=== PATIENT | female | born 1995 | race Caucasian/White ===

== ENCOUNTER 2016-12-15 20:10 | Emergency (ER) | payer OTHER ==
--- NOTE | 2016-12-15 21:59 | ED ---
Fever HPI - General Chief Complaint: Dizziness Stated Complaint: Fever/101 Time Seen by Provider: 12/15/16 21:47 Source: patient Mode of arrival: ambulatory Limitations: no limitations - History of Present Illness Initial Comments: Patient is a 21-year-old woman who presents today to be evaluated for fevers, chills, cough, and a syncopal episode. Patient states that she was at work tonight, and started feeling hot and cold. She went into the bathroom there and started feeling lightheaded then she passed out, and believes she struck her head against the railing in the bathroom stall. She states that she then got up and came here. The patient states that for the past day to 2 she has had a little bit of a cough without much sputum. She has no shortness of breath or chest pain. MD Complaint: fever, malaise -: hour(s) Temperature Source: subjective Context: sick contacts Associated Symptoms: chills, cough - Related Data Home Medications Medication Instructions Recorded Confirmed Albuterol Inhaler [Ventolin Hfa 1 - 2 puff INHALATION RT-Q6H PRN 12/15/16 Inhaler] EPINEPHrine [Epipen 2-Rob] 0.3 mg IM ONCE PRN 12/15/16 12/15/16 Ibuprofen [Motrin] 800 mg PO TID PRN 12/15/16 12/15/16 Lisdexamfetamine Dimesylate 70 mg PO QAM PRN 12/15/16 12/15/16 [Vyvanse] Allergies Allergy/AdvReac Type Severity Reaction Status Date / Time methylprednisolone Allergy Rash/Hives Verified 12/15/16 22:01 [From Medrol] mold Allergy Anaphylaxis Verified 12/15/16 22:01 Penicillins Allergy Unknown Verified 12/15/16 22:01 Childhood tramadol HCl [From Ultram] Allergy Rash/Hives Verified 12/15/16 22:01 codeine AdvReac Severe Vertigo Verified 12/15/16 22:01 [From Tylenol-Codeine #3] Review of Systems ROS Statement: Those systems with pertinent positive or pertinent negative responses have been documented in the HPI. ROS Other: All systems not noted in ROS Statement are negative. Constitutional: Reports: fever, chills Eyes: Denies: vision change ENT: Denies: ear pain, hearing loss, epistaxis, congestion Respiratory: Reports: cough. Denies: dyspnea, wheezes, hemoptysis Cardiovascular: Reports: syncope. Denies: chest pain, palpitations, dyspnea on exertion, edema Gastrointestinal: Denies: abdominal pain, nausea, vomiting, diarrhea, constipation Genitourinary: Denies: urgency, dysuria, hematuria Musculoskeletal: Denies: back pain Skin: Denies: rash Neurological: Reports: headache. Denies: weakness, numbness, paresthesias, confusion, abnormal gait, vertigo Past Medical History Past Medical History: No Reported History Additional Past Medical History / Comment(s): scoliosis History of Any Multi-Drug Resistant Organisms: None Reported Past Surgical History: No Surgical Hx Reported Past Psychological History: Anxiety, Panic Disorder Smoking Status: Current every day smoker Past Alcohol Use History: None Reported Past Drug Use History: None Reported General Exam Limitations: no limitations General appearance: alert, in no apparent distress Head exam: Present: atraumatic, normocephalic, normal inspection Eye exam: Present: normal appearance, PERRL, EOMI. Absent: scleral icterus, conjunctival injection, nystagmus ENT exam: Present: normal oropharynx, mucous membranes moist, TM's normal bilaterally, normal external ear exam Neck exam: Present: normal inspection, full ROM, lymphadenopathy. Absent: tenderness, meningismus Respiratory exam: Present: normal lung sounds bilaterally. Absent: respiratory distress, wheezes, rales, rhonchi, stridor Cardiovascular Exam: Present: regular rate, normal rhythm, normal heart sounds. Absent: systolic murmur, diastolic murmur, rubs, gallop GI/Abdominal exam: Present: soft. Absent: distended, tenderness, guarding, rebound, mass Extremities exam: Present: normal inspection, normal capillary refill. Absent: pedal edema, calf tenderness Back exam: Absent: CVA tenderness (R), CVA tenderness (L) Neurological exam: Present: alert, oriented X3, CN II-XII intact. Absent: motor sensory deficit Skin exam: Present: warm, dry, intact, normal color. Absent: rash Course Vital Signs 12/15/16 20:49 Temperature 98.8 F Pulse Rate 101 H Respiratory 20 Rate Blood Pressure 125/84 O2 Sat by Pulse 98 Oximetry Medical Decision Making - Lab Data Lab Results 03/08/17 03/08/17 03/08/17 Range/Units 22:05 22:05 22:05 Urine Color Yellow Urine Appearance Clear (Clear) Urine pH 5.5 (5.0-8.0) Ur Specific [place] 1.012 (1.001-1.035) Urine Protein Negative (Negative) Urine Glucose (UA) Negative (Negative) Urine Ketones Negative (Negative) Urine Blood Small H (Negative) Urine Nitrate Negative (Negative) Urine Bilirubin Negative (Negative) Urine Urobilinogen <2.0 (<2.0) mg/dL Ur Leukocyte Esterase Negative (Negative) Urine RBC 3 (0-5) /hpf Urine WBC 1 (0-5) /hpf Ur Squamous Epith Cells <1 (0-4) /hpf Urine Bacteria Rare H (None) /hpf Urine HCG, Qual Not Detected (Not Detectd) Influenza Type A RNA Not Detected (Not Detectd) Influenza Type B (PCR) Not Detected (Not Detectd) Disposition Clinical Impression: Viral syndrome, Head injury Disposition: HOME SELF-CARE Condition: Good Instructions: Viral Syndrome (ED), Head Injury (ED) Referrals: Nestor Ruvalcaba MD [Primary Care Provider] - 1-2 days
[2016-12-15 22:27] LABS: Appearance,Urine Clear (Clear); Bacteria,Urine Rare /hpf; Bilirubin,Urine Negative (Negative); Glucose,Urine (UA) Negative (Negative); Ketones,Urine Negative (Negative); Leukocyte Esterase,Urine Negative (Negative); Nitrite,Urine Negative (Negative); PH, Urine 5.5 (5.0-8.0); Particle Count 702; Protein,Urine Negative (Negative); RBC,Urine 3 /hpf (0-5); Specific Gravity,Urine 1.012 (1.001-1.035); Squamous Epithelial Cell,Urine <1 /hpf (0-4); UA Billing (MACRO vs. MICRO) MICRO; Urobilinogen,Urine <2.0 mg/dL (<2.0); WBC,Urine 1 /hpf (0-5)
[2016-12-15 23:40] VITALS: BP 111/71; PULSE 80; RESP 16; TEMP 99.2
== END 2016-12-15 23:35 | disposition home or self-care (01) ==
LOC: EC 20:10
DX: B34.9 Viral infection, unspecified (principal); S09.90XA Unspecified injury of head, initial encounter; R55 Syncope and collapse; F17.200 Nicotine dependence, unspecified, uncomplicated; Z88.5 Allergy status to narcotic agent; Z88.0 Allergy status to penicillin; Z88.8 Allergy status to other drugs, medicaments and biological substances; Z91.048 Other nonmedicinal substance allergy status; W18.30XA Fall on same level, unspecified, initial encounter; Y99.0 Civilian activity done for income or pay
CPT/HCPCS: 81001; 81025; 87502; 99284

== ENCOUNTER 2018-11-19 21:46 | Emergency (ER) | payer BC, OTHER ==
[2018-11-19 21:56] VITALS: TEMP 98.2
[2018-11-19] MEDS ORDERED: FAMOTIDINE 20 MG/2 ML VIAL IV STA (21:57)
[2018-11-19] MEDS ORDERED: SODIUM CHLORIDE 0.9% 1,000 ML IV ONE (21:57)
[2018-11-19] MEDS ORDERED: diphenhydrAMINE 50 MG/ML 1 ML VIAL IVP STA (21:57)
[2018-11-19] MEDS ORDERED: predniSONE 50 MG TAB PO STA (21:59)
--- NOTE | 2018-11-19 22:31 | ED ---
Allergic Reaction HPI - General Chief complaint: Allergic Reaction Stated complaint: Allergic reaction Time Seen by Provider: 11/19/18 21:53 Source: patient Mode of arrival: ambulatory Limitations: no limitations - History of Present Illness Initial Comments: 23-year-old female patient presents to the emergency department today for evaluation of rash and throat pain after eating mushrooms about 2 hours ago. Patient is a known ALLERGY to mushrooms. Patient states symptoms started about an hour ago. Denies taking any medication for her symptoms. States she does have an EpiPen but doesn't use it unless her throat is closed. She denies any lip or tongue swelling.denies any wheezing or shortness of breath. Denies any abdominal pain, nausea, or vomiting with this. States that her symptoms are consistent with her previous ALLERGIC reactions. Patient denies any recent rash , fever, chills, chest pain, abdominal pain, nausea, vomiting, diarrhea, constipation, back pain, numbness, tingling, dizziness, weakness, hematuria, dysuria, urinary urgency, urinary frequency, headache, visual changes, or any other complaints. Denies chance of . - Related Data Home Medications Medication Instructions Recorded Confirmed Albuterol Inhaler [Ventolin Hfa 1 - 2 puff INHALATION RT-Q6H PRN 12/15/16 Inhaler] EPINEPHrine [Epipen 2-Rob] 0.3 mg IM ONCE PRN 12/15/16 09/17/17 Ibuprofen [Motrin] 800 mg PO TID PRN 12/15/16 09/17/17 Lisdexamfetamine Dimesylate 70 mg PO QAM PRN 12/15/16 09/17/17 [Vyvanse] Dicyclomine HCl 10 mg PO TID 09/17/17 09/17/17 Omeprazole 40 mg PO DAILY 09/17/17 09/17/17 Previous Rx's Medication Instructions Recorded Hyoscyamine Sulfate [Levsin] 0.125 mg PO Q4H PRN #20 tab 09/18/17 Famotidine [Pepcid] 20 mg PO DAILY #3 tablet 11/19/18 predniSONE 50 mg PO DAILY #3 tab 11/19/18 Allergies Allergy/AdvReac Type Severity Reaction Status Date / Time methylprednisolone Allergy Rash/Hives Verified 09/17/17 22:02 [From Medrol] mold Allergy Anaphylaxis Verified 09/17/17 22:02 Penicillins Allergy Unknown Verified 09/17/17 22:02 Childhood tramadol HCl [From Ultram] Allergy Rash/Hives Verified 09/17/17 22:02 codeine AdvReac Severe Vertigo Verified 09/17/17 22:02 [From Tylenol-Codeine #3] Review of Systems ROS Statement: Those systems with pertinent positive or pertinent negative responses have been documented in the HPI. ROS Other: All systems not noted in ROS Statement are negative. Past Medical History Past Medical History: No Reported History Additional Past Medical History / Comment(s): scoliosis History of Any Multi-Drug Resistant Organisms: None Reported Past Surgical History: No Surgical Hx Reported Past Psychological History: Anxiety, Panic Disorder Smoking Status: Current every day smoker Past Alcohol Use History: None Reported Past Drug Use History: None Reported General Exam Limitations: no limitations General appearance: alert, in no apparent distress, other Course Vital Signs 11/19/18 11/19/18 21:53 23:20 Temperature 98.2 F Pulse Rate 77 63 Respiratory 20 16 Rate Blood Pressure 118/85 123/60 O2 Sat by Pulse 99 96 Oximetry Medical Decision Making - Medical Decision Making 23-year-old female patient who is an ALLERGY to mushrooms presents to the emergency department today for evaluation of throat pain and itchy rash after ingesting mushrooms with a meal. She denied any lip or tongue swelling. Denies any shortness of breath or wheezing. She was given IV Pepcid, Benadryl, and oral prednisone. Patient did report improvement of symptoms. Upon reevaluation the rash has resolved. Lungs are clear. Vital signs stable. She is requesting discharge home. She'll be given a prescription for 3 day course of prednisone and Pepcid. She is instructed to keep EpiPen on hand. She is instructed take Benadryl every 6 hours for symptom relief. Return parameters were discussed in detail. She verbalizes understanding and agrees with this plan. Disposition Clinical Impression: Allergic reaction Disposition: HOME SELF-CARE Condition: Good Instructions (If sedation given, give patient instructions): General Allergic Reaction (ED) Additional Instructions: Take medications as directed. Use Epi-Pen if needed. Follow up with your primary care physician for recheck in 1-2 days. Return immediately for any new, worsening, or concerning symptoms Prescriptions: Famotidine [Pepcid] 20 mg PO DAILY #3 tablet predniSONE 50 mg PO DAILY #3 tab Is patient prescribed a controlled substance at d/c from ED?: No Referrals: Nestor Ruvalcaba MD [Primary Care Provider] - 1-2 days Time of Disposition: 23:07
[2018-11-19 23:22] VITALS: BP 123/60; PULSE 63; RESP 16
== END 2018-11-19 23:22 | disposition home or self-care (01) ==
LOC: EC 21:46
DX: T78.40XA Allergy, unspecified, initial encounter (principal); F41.0 Panic disorder [episodic paroxysmal anxiety]; F17.200 Nicotine dependence, unspecified, uncomplicated; Z79.899 Other long term (current) drug therapy; Z88.0 Allergy status to penicillin; Z88.5 Allergy status to narcotic agent; Z91.048 Other nonmedicinal substance allergy status; Z88.8 Allergy status to other drugs, medicaments and biological substances; Z91.018 Allergy to other foods
CPT/HCPCS: 99283; 96374; 96375; 96361; J1200; J7512

== ENCOUNTER 2018-12-05 15:52 | Emergency (ER) | payer OTHER, BC ==
[2018-12-05 15:58] VITALS: BP 131/89; PULSE 76; RESP 18; TEMP 97.8
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
== END 2018-12-05 16:55 | disposition home or self-care (01) ==
LOC: EC 15:52
DX: T81.33XA Disruption of traumatic injury wound repair, initial encounter (principal); R58 Hemorrhage, not elsewhere classified; F17.200 Nicotine dependence, unspecified, uncomplicated; Z79.899 Other long term (current) drug therapy; Z88.0 Allergy status to penicillin; Z88.5 Allergy status to narcotic agent; Z88.8 Allergy status to other drugs, medicaments and biological substances; Z91.048 Other nonmedicinal substance allergy status
CPT/HCPCS: 99282

== ENCOUNTER 2019-01-08 20:23 | Emergency (ER) | payer OTHER, BC ==
[2019-01-08 20:35] VITALS: RESP 18
[2019-01-08] MEDS ORDERED: SODIUM CHLORIDE 0.9% 1,000 ML IV STA (22:09)
[2019-01-08] MEDS ORDERED: diphenhydrAMINE 50 MG/ML 1 ML VIAL IVP STA (22:10)
[2019-01-08] MEDS ORDERED: METOCLOPRAMIDE 5 MG/ML 2 ML VIAL IVP STA (22:10)
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
--- NOTE | 2019-01-08 23:11 | CT ---
EXAM: CT Head Without Intravenous Contrast CLINICAL HISTORY: Pain TECHNIQUE: Axial computed tomography images of the head/brain without intravenous contrast. CTDI is 45.2 mGy and DLP is 1019 mGy-cm. This CT exam was performed using one or more of the following dose reduction techniques: automated exposure control, adjustment of the mA and/or kV according to patient size, and/or use of iterative reconstruction technique. COMPARISON: No relevant prior studies available. FINDINGS: Brain: Unremarkable. No hemorrhage. No significant white matter disease. No edema. Ventricles: Unremarkable. No ventriculomegaly. Bones/joints: Unremarkable. No acute fracture. Soft tissues: Unremarkable. Sinuses: Unremarkable as visualized. No acute sinusitis. Mastoid air cells: Unremarkable as visualized. No mastoid effusion. IMPRESSION: Unremarkable Ct Brain EXAM: CT Cervical Spine Without Intravenous Contrast CLINICAL HISTORY: Pain TECHNIQUE: Axial computed tomography images of the cervical spine without intravenous contrast. CTDI is 11.1 mGy and DLP is 355 mGy-cm. This CT exam was performed using one or more of the following dose reduction techniques: automated exposure control, adjustment of the mA and/or kV according to patient size, and/or use of iterative reconstruction technique. Coronal and sagittal reformatted images were created and reviewed. COMPARISON: No relevant prior studies available. FINDINGS: Vertebrae: Unremarkable. No acute fracture. Discs/spinal canal/neural foramina: No acute findings. No spinal canal stenosis. Soft tissues: Unremarkable. IMPRESSION: No Fracture or Malalignment of the cervical spine
[2019-01-08] MEDS ORDERED: KETOROLAC 30 MG/ML 1 ML VIAL IVP STA (23:26)
[2019-01-09 00:02] VITALS: BP 111/71; PULSE 56; TEMP 97.6
== END 2019-01-09 00:01 | disposition home or self-care (01) ==
LOC: EC 20:23
DX: R51 Headache (principal); H53.8 Other visual disturbances; F41.0 Panic disorder [episodic paroxysmal anxiety]; F17.200 Nicotine dependence, unspecified, uncomplicated; Z79.899 Other long term (current) drug therapy; Z88.0 Allergy status to penicillin; Z88.5 Allergy status to narcotic agent; Z88.8 Allergy status to other drugs, medicaments and biological substances; Z91.048 Other nonmedicinal substance allergy status; Z53.29 Procedure and treatment not carried out because of patient's decision for other reasons
CPT/HCPCS: 72125; 70450; 99284; 96374; 96375; J1200; J2765

== ENCOUNTER → 2019-02-26 | Outpatient (CLI) | payer BC, OTHER | END | disposition home or self-care (01) | LOC: LABWHC1 17:09 | PROVIDERS: ATTEND Nurse Practitioner Family | DX: N91.2 Amenorrhea, unspecified (principal) | CPT/HCPCS: 36415; 84702 ==

== ENCOUNTER → 2019-03-07 | Outpatient (CLI) | payer OTHER ==
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
== END | disposition home or self-care (01) ==
LOC: RADXRMAIN 13:00
PROVIDERS: ATTEND Emergency Medicine
DX: M79.644 Pain in right finger(s) (principal); M25.531 Pain in right wrist

== ENCOUNTER → 2019-03-13 | Outpatient (CLI) | payer OTHER ==
--- NOTE | 2019-03-13 11:08 | XR ---
Right wrist HISTORY: Pain 4 views of the right wrist Bone mineralization, joint spaces and alignment are maintained. No fracture or dislocation. IMPRESSION: Normal right wrist. Wrist MRI may be of benefit.
== END | disposition home or self-care (01) ==
LOC: RADXRMAIN 10:35
PROVIDERS: ATTEND Emergency Medicine
DX: S63.501D Unspecified sprain of right wrist, subsequent encounter (principal)

== ENCOUNTER 2019-03-17 09:42 | Emergency (ER) | payer BC, OTHER ==
[2019-03-17 09:46] VITALS: RESP 16; TEMP 97.6
[2019-03-17] MEDS ORDERED: SODIUM CHLORIDE 0.9% 1,000 ML IV STA ×2 (10:09)
[2019-03-17] MEDS ORDERED: KETOROLAC 30 MG/ML 1 ML VIAL IVP STA (10:09)
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
--- NOTE | 2019-03-17 11:01 | XR ---
EXAMINATION TYPE: XR KUB , 2 VIEWS DATE OF EXAM ORDERED: 03/17/2019 HISTORY: abdominal pain. COMPARISON: None. FINDINGS: The lung bases are clear. Within the abdomen, the abdominal gas pattern is normal. There is no evidence of obstruction or free air. No unusual calcifications are seen. IMPRESSION: NO ACUTE INTRA-ABDOMINAL ABNORMALITY.
[2019-03-17 11:30] LABS: Appearance,Urine Cloudy (Clear); Bacteria,Urine Moderate /hpf; Bilirubin,Urine Negative (Negative); Blood,Urine Moderate (Negative); Color,Urine Yellow; Glucose,Urine (UA) Negative (Negative); Ketones,Urine Negative (Negative); Leukocyte Esterase,Urine Large (Negative); Mucus,Urine Occasional /hpf; Nitrite,Urine Positive (Negative); Partial Thromboplastin Time 27.8 sec (22.0-30.0); Protein,Urine 2+ (Negative); Prothrombin Time 10.5 sec (9.0-12.0); RBC,Urine >182 /hpf (0-5); Squamous Epithelial Cell,Urine 41 /hpf (0-4); Urobilinogen,Urine <2.0 mg/dL (<2.0); WBC,Urine >182 /hpf (0-5)
[2019-03-17 11:33] LABS: ALT 13 U/L (9-52); AST 18 U/L (14-36); Albumin 4.8 g/dL (3.5-5.0); Alkaline Phosphatase 58 U/L (38-126); Amylase 40 U/L (30-110); Anion Gap 11 mmol/L; Blood Urea Nitrogen 12 mg/dL (7-17); Calcium 9.5 mg/dL (8.4-10.2); Carbon Dioxide 20 mmol/L (22-30); Chloride 110 mmol/L (98-107); Glucose 75 mg/dL (74-99); Lipase 27 U/L (23-300); Potassium 4.8 mmol/L (3.5-5.1); Sodium 141 mmol/L (137-145); Total Bilirubin 0.8 mg/dL (0.2-1.3); Total Protein 7.6 g/dL (6.3-8.2)
[2019-03-17] MEDS ORDERED: cefTRIAXone IN SWFI 1,000 MG/10 ML SYRINGE IVP STA (11:36)
[2019-03-17 11:39] LABS: Basophils % (A) 0 %; Eosinophils # (A) 0.1 k/uL (0-0.7); Eosinophils % (A) 1 %; HCT 43.4 % (34.0-46.0); Lymphocytes # (A) 1.4 k/uL (1.0-4.8); Lymphocytes % (A) 13 %; MCH 27.7 pg (25.0-35.0); MCHC 32.3 g/dL (31.0-37.0); MCV 85.9 fL (80.0-100.0); Mean Platelet Volume 8.5; Monocytes # (A) 0.6 k/uL (0-1.0); Monocytes % (A) 5 %; Neutrophils # (A) 8.6 k/uL (1.3-7.7); Neutrophils % (A) 80 %; Platelet Count 195 k/uL (150-450); RBC 5.06 m/uL (3.80-5.40); RDW 13.6 % (11.5-15.5); WBC 10.8 k/uL (3.8-10.6)
[2019-03-17 12:01] VITALS: BP 97/63; PULSE 73
[2019-03-17] MEDS ORDERED: AZITHROMYCIN 500 MG TAB PO STA (12:14)
[2019-03-18 15:48] LABS: C. trachomatis,PCR Negative (Neg,Equiv); Chlamydia trachomatis Source Urine; N. gonorrhoeae,PCR Negative (Neg,Equiv); Neisseria Source Urine
== END 2019-03-17 12:39 | disposition home or self-care (01) ==
LOC: EC 09:42
DX: N39.0 Urinary tract infection, site not specified (principal); R11.0 Nausea; F17.200 Nicotine dependence, unspecified, uncomplicated; Z88.0 Allergy status to penicillin; Z88.5 Allergy status to narcotic agent; Z88.8 Allergy status to other drugs, medicaments and biological substances; Z91.048 Other nonmedicinal substance allergy status; Z79.3 Long term (current) use of hormonal contraceptives; Z79.899 Other long term (current) drug therapy
CPT/HCPCS: 36415; 80053; 82150; 83690; 85025; 85610; 85730; 81001; 81025; 87491; 87591; 87086; 74018; 99284; 96374; 96375; 96361 ×2; J0696; J1885; 87077; 87186

== ENCOUNTER → 2019-04-30 | Outpatient (CLI) | payer BC, OTHER | END | disposition home or self-care (01) | LOC: LABWHC1 14:16 | PROVIDERS: ATTEND Obstetrics & Gynecology | DX: N91.2 Amenorrhea, unspecified (principal) | CPT/HCPCS: 36415; 84702 ==

== ENCOUNTER → 2020-05-19 | Outpatient (CLI) | payer OTHER ==
[2020-05-19 15:36] LABS: HCT 39.7 % (34.0-46.0); HGB 12.7 gm/dL (11.4-16.0); MCH 28.7 pg (25.0-35.0); MCHC 32.1 g/dL (31.0-37.0); MCV 89.7 fL (80.0-100.0); Platelet Count 239 k/uL (150-450); RBC 4.43 m/uL (3.80-5.40); RDW 13.4 % (11.5-15.5)
[2020-05-20 01:22] LABS: Non-African American GFR(CKD) 135.5 (60.0-200.0)
[2020-05-20 02:18] LABS: Hepatitis B Surface Antigen Non-Reactive (Non-Reactive)
[2020-05-20 06:39] LABS: HIV 2 AB Non-Reactive (Non-Reactive); HIV AB P24 Non-Reactive (Non-Reactive); HIV P24 AG Non-Reactive (Non-Reactive)
== END | disposition home or self-care (01) ==
LOC: LABWHC1 13:39
PROVIDERS: ATTEND Obstetrics & Gynecology
DX: Z34.02 Encounter for supervision of normal first pregnancy, second trimester (principal)
CPT/HCPCS: 36415; 82565; 82947; 85027; 86762; 86780; 86850; 86900; 86901; 87340; 87390

== ENCOUNTER 2020-07-14 10:33 | Emergency (ER) | payer OTHER ==
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
--- NOTE | 2020-07-14 11:45 | US ---
EXAMINATION TYPE: US OB >= 14 wk fetus DATE OF EXAM: 07/14/2020 COMPARISON: None CLINICAL HISTORY: pain Difficult exam due to position TECHNIQUE: Transabdominal (TA) GESTATIONAL AGE / DATING Physician Established: (17weeks/0 days) EDC: 12/22/2020 Dates by LMP: (17weeks/0 days) EDC: 12/22/2020 Dates by Current Scan: (17weeks/0 days) EDC: 12/22/2020 SURVEY IUP: Single PLACENTA: Posterior PREVIA: No Previa AMBER: 15.7 cm CERVICAL LENGTH (transabdominal: norm > 3.0cm): 3.2 cm BIOMETRY PRESENTATION: Vertex LIE: Longitudinal BPD: 3.8 cm 17 weeks / 4 days HC: 13.6 cm 17 weeks / 1 days AC: 11.3 cm 17 weeks / 1 days FL: 2.1 cm 16 weeks / 1 days ESTIMATED WEIGHT IN GRAMS: 165 grams ESTIMATED WEIGHT IN LBS/OZ: 0 lbs. 6 oz. WEIGHT PERCENTAGE BASED ON ESTABLISHED DATES: 25% HC/AC: 1.2 Normal FL/AC: 18% Normal HEART RATE: 149 bpm RHYTHM: Normal Viable IUP, measurements consistent with dates IMPRESSION: Viable intrauterine with a heart rate 149 bpm.
[2020-07-14] MEDS ORDERED: ACETAMINOPHEN TAB 500 MG TAB PO STA (12:08)
[2020-07-14 12:18] LABS: Appearance,Urine Cloudy (Clear); Bacteria,Urine Rare /hpf; Bilirubin,Urine Negative (Negative); Blood,Urine Small (Negative); Color,Urine Yellow; Glucose,Urine (UA) Negative (Negative); Ketones,Urine Negative (Negative); Leukocyte Esterase,Urine Moderate (Negative); Mucus,Urine Rare /hpf; Nitrite,Urine Negative (Negative); PH, Urine 6.5 (5.0-8.0); Protein,Urine Negative (Negative); RBC,Urine 1 /hpf (0-5); Specific Gravity,Urine 1.014 (1.001-1.035); Squamous Epithelial Cell,Urine 18 /hpf (0-4); Urobilinogen,Urine <2.0 mg/dL (<2.0); WBC,Urine 4 /hpf (0-5)
[2020-07-14 12:51] VITALS: BP 104/59; PULSE 73; RESP 18; TEMP 97.9
== END 2020-07-14 12:51 | disposition home or self-care (01) ==
LOC: EC 10:33
DX: O26.892 Other specified pregnancy related conditions, second trimester (principal); Z88.0 Allergy status to penicillin; Z88.1 Allergy status to other antibiotic agents; Z88.5 Allergy status to narcotic agent; Z88.8 Allergy status to other drugs, medicaments and biological substances; Z91.018 Allergy to other foods; Z91.048 Other nonmedicinal substance allergy status; Z87.891 Personal history of nicotine dependence; Z3A.17 17 weeks gestation of pregnancy
CPT/HCPCS: 76805; 81001; 99284

== ENCOUNTER 2020-08-14 14:54 | Outpatient (CLI) | payer OTHER ==
[2020-08-14 15:41] VITALS: BP 111/66; PULSE 90; RESP 16; TEMP 97
--- NOTE | 2020-08-26 08:19 | P.MSEPDOC ---
Presenting Problems - Arrival Data Date of Arrival on Unit: 08/14/20 Time of Arrival on Unit: 14:54 Mode of Transport: Ambulatory - Complaint OB-Reason for Admission/Chief Complaint: Vaginal Bleeding Comment: spotting when wiping after intercourse since 0200 this am Medical History - Information : 1 Para: 0 Term: 0 : 0 Abortions: Spontaneous or Elective: 0 Number of Living Children: 0 - Gestational Age Gestational Age by LASHAE (wks/days): 21 Weeks and 3 Days Review of Systems - Review of Systems Constitutional: No problems Breast: No problems ENT: No problems Cardiovascular: No problems Respiratory: No problems Gastrointestinal: No problems Genitourinary: No problems Musculoskeletal: No problems Neurological: No problems Skin: No problems Vital Signs - Temperature Temperature: 97 F Temperature Source: Temporal Artery Scan - Pulse Right Sitting Pulse Rate: 90 Pulse Assessment Method: Automatic Cuff - Respirations Respiratory Rate: 16 Oxygen Delivery Method: Room Air - Blood Pressure Right Arm Blood Pressure: 111/66 Blood Pressure Mean: 81 Blood Pressure Source: Automatic Cuff Medical Screen Scoring (Pre) - Cervical Exam Dilation: 0 cm = 0 Membranes: Intact - Uterine Contractions Frequency: N/A Duration: N/A Intensity: N/A - Maternal Vital Signs Maternal Temperature: N/A Signs of Preeclampsia: N/A Maternal Respirations: N/A - Maternal Trauma Maternal Trauma: N/A - Total Score - Baby A Total Score - Baby A: 0 - Total Score - Baby B Total Score - Baby B: 0 - Total Score - Baby C Total Score - Baby C: 0 - Level of Risk - Baby A Level of Risk - Baby A: Low (0-5) - Level of Risk - Baby B Level of Risk - Baby B: Low (0-5) - Level of Risk - Baby C Level of Risk - Baby C: Low (0-5) Physician Notification (Pre) - Physician Notified Physician Notified Date: 08/14/20 Physician Notified Time: 15:24 New Order Received: Yes (spec and vag exam, if no bleeding and closed, d/c home) Disposition - Disposition OB Disposition: Discharge to home, Written follow up instructions reviewed Discharge Date: 08/14/20 Discharge Time: 15:35 I agree with the RN Medical Screening Exam: Yes Risk & Benefit of care provided described in d/c instruction: Yes Diagnosis: SPOTTING COMPLICATING , THIRD TRIMESTER
== END 2020-08-14 15:35 | disposition home or self-care (01) ==
LOC: FBPOP 14:54
PROVIDERS: ATTEND Obstetrics & Gynecology
DX: O26.853 Spotting complicating pregnancy, third trimester (principal); Z3A.21 21 weeks gestation of pregnancy
CPT/HCPCS: 99213

== ENCOUNTER 2020-12-17 06:09 | Inpatient (IN) | payer OTHER ==
[2020-12-17] MEDS ORDERED: TERBUTALINE 1 MG/ML VIAL SQ PRN (06:35)
[2020-12-17] MEDS ORDERED: LIDOCAINE 0.5% (PF) 5 MG/ML (50 ML SDV) SQ PRN (06:35)
[2020-12-17] MEDS ORDERED: OXYTOCIN 10 UNIT/ML 1 ML VIAL IM PRN (06:35)
[2020-12-17] MEDS ORDERED: METHYLERGONOVINE 0.2 MG/ML 1 ML AMP IM PRN (06:35)
[2020-12-17] MEDS ORDERED: CARBOPROST TROMETHAMINE 250 MCG/ML 1 ML AMP IM PRN (06:35)
[2020-12-17] MEDS ORDERED: OXYTOCIN 30 UNITS/500 ML NS 30 UNIT in SALINE 1 500ML.BAG IV SCH ×2 (06:45→17:15)
[2020-12-17] MEDS: LACTATED RINGERS 1,000 ML IV SCH ×3 (06:48→17:57)
[2020-12-17 06:50] LABS: Basophils % (A) 0 %; Eosinophils # (A) 0.1 k/uL (0-0.7); Eosinophils % (A) 0 %; HCT 36.1 % (34.0-46.0); Lymphocytes # (A) 3.1 k/uL (1.0-4.8); Lymphocytes % (A) 22 %; MCH 29.8 pg (25.0-35.0); MCHC 33.1 g/dL (31.0-37.0); MCV 90.1 fL (80.0-100.0); Mean Platelet Volume 8.7; Monocytes # (A) 0.7 k/uL (0-1.0); Monocytes % (A) 5 %; Neutrophils # (A) 9.9 k/uL (1.3-7.7); Neutrophils % (A) 71 %; Platelet Count 221 k/uL (150-450); RBC 4.01 m/uL (3.80-5.40); RDW 12.9 % (11.5-15.5); WBC 13.9 k/uL (3.8-10.6)
[2020-12-17] MEDS ORDERED: BUTORPHANOL 1 MG/ML 1 ML VIAL IV PRN (09:36)
[2020-12-17] MEDS ORDERED: SODIUM CHLORIDE 0.9% 100 ML BAG ONE (10:12)
[2020-12-17] MEDS ORDERED: fentaNYL (PF) 50 MCG/ML 5 ML AMP ONE (10:12)
[2020-12-17] MEDS ORDERED: BUPIVACAINE (PF) 0.25% 30 ML VIAL ONE (10:12)
[2020-12-17] MEDS ORDERED: ROPIVACAINE 100 MG, fentaNYL (PF) 200 MCG in SODIUM CHLORIDE 0.9% 76 ML EPIDURAL ONE (10:45)
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
[2020-12-17] MEDS ORDERED: LANOLIN CREAM 5 GM TUBE TOPICAL PRN (17:14)
[2020-12-17] MEDS ORDERED: diphenhydrAMINE 50 MG CAP PO PRN (17:14)
[2020-12-17] MEDS ORDERED: diphenhydrAMINE 25 MG CAP PO PRN (17:14)
[2020-12-17] MEDS ORDERED: ZOLPIDEM 5 MG TAB PO PRN (17:14)
[2020-12-17] MEDS ORDERED: HYDROCORTISONE 2.5% RECTAL CREAM 30 GM TUBE RECTAL PRN (17:14)
[2020-12-17] MEDS ORDERED: diphenhydrAMINE 50 MG/ML 1 ML VIAL IVP PRN ×2 (17:14)
[2020-12-17] MEDS ORDERED: BENZOCAINE/MENTHOL SPRAY 1 GM/SPRAY AEROSOL TOPICAL PRN (17:14)
[2020-12-17] MEDS ORDERED: SIMETHICONE 80 MG CHEWABLE PO PRN (17:14)
--- NOTE | 2020-12-17 17:14 | P.PROBDLV ---
Vaginal Delivery Note - . Vaginal Delivery Note: 25 year old presents at 39 weeks and 1 day for induction of labor. Her cervix is 1 cm dilated, 70% effaced, -2 station. She is tyler irregularly. heart tones 135 with moderate variability and reactive. Pitocin was started. Amniotomy performed at 7:54 AM and clear fluid noted. When she was 2 cm she got an epidural and was comfortable. Her cervix was completely dilated and +2 station at 1644. She pushed, delivered a viable female over intact perineum under epidural anesthesia at 1657. Head delivered OA, anterior shoulder delivered gentle downward guidance followed by posterior shoulder and rest of body. Nose and mouth bulb suctioned, cord clamped and cut, infant placed on mother's abdomen. Apgars 9, 9, weight 6 lbs. 12 oz. Placenta delivered spontaneously, intact with three-vessel cord at 1700. Vagina, cervix, and perineum were inspected. Second-degree midline laceration was repaired with 3-0 Vicryl. Estimated blood loss 200 mL. Mother and baby in stable condition.
[2020-12-17] MEDS ORDERED: ACETAMINOPHEN TAB 500 MG TAB PO PRN (17:15)
[2020-12-17] MEDS: IBUPROFEN 600 MG TAB PO SCH (18:57)
[2020-12-17] MEDS: SENNOSIDES-DOCUSATE SODIUM 1 EACH TAB PO SCH (20:12)
[2020-12-17] MEDS: ACETAMINOPHEN TAB 325 MG TAB PO PRN (23:58)
[2020-12-18] MEDS: IBUPROFEN 600 MG TAB PO SCH ×5 (00:34→16:06)
[2020-12-18] MEDS: ACETAMINOPHEN TAB 325 MG TAB PO PRN (05:43)
[2020-12-18 06:38] LABS: Basophils % (A) 0 %; Eosinophils # (A) 0.1 k/uL (0-0.7); Eosinophils % (A) 0 %; HCT 31.6 % (34.0-46.0); Lymphocytes # (A) 2.5 k/uL (1.0-4.8); Lymphocytes % (A) 11 %; MCHC 34.9 g/dL (31.0-37.0); MCV 88.9 fL (80.0-100.0); Mean Platelet Volume 9.5; Monocytes # (A) 1.2 k/uL (0-1.0); Monocytes % (A) 5 %; Neutrophils # (A) 19.7 k/uL (1.3-7.7); Neutrophils % (A) 83 %; Platelet Count 190 k/uL (150-450); RBC 3.55 m/uL (3.80-5.40); RDW 13.1 % (11.5-15.5); WBC 23.6 k/uL (3.8-10.6)
--- NOTE | 2020-12-18 07:27 | P.DS ---
Providers Date of admission: 12/17/20 06:09 Expected date of discharge: 12/18/20 Attending physician: Tess Tejeda Primary care physician: Stated None - Discharge Diagnosis(es) (1) Encounter for elective induction of labor Current Visit: Yes Status: Resolved (2) Normal vaginal delivery Current Visit: Yes Status: Acute Hospital Course: Patient presented for induction of labor. She underwent a normal vaginal delivery. Her course was uncomplicated. She denies nausea, vo miting, chest pain, shortness of breath or calf pain. Her lochia is decreasing. She'll be discharged home day #1 in stable condition to follow-up with me in 6 weeks. Plan - Discharge Summary New Discharge Prescriptions: New Ibuprofen [Motrin] 600 mg PO Q6H #30 tab No Action Pnv No.95/Ferrous Fum/Folic AC [ Multivitamin Tablet] 1 tab PO HS Acetaminophen Tab [Tylenol] 1,000 mg PO Q6HR PRN PRN Reason: Fever And/ Or Pain Discharge Medication List Acetaminophen Tab [Tylenol] 1,000 mg PO Q6HR PRN 07/14/20 [History] Pnv No.95/Ferrous Fum/Folic AC [ Multivitamin Tablet] 1 tab PO HS 07/14/20 [History] Ibuprofen [Motrin] 600 mg PO Q6H #30 tab 12/18/20 [Rx] Follow up Appointment(s)/Referral(s): Tess Tejeda DO [Doctor of Osteopathic Medicine] - 6 Weeks Discharge Disposition: HOME SELF-CARE
[2020-12-18] MEDS: SENNOSIDES-DOCUSATE SODIUM 1 EACH TAB PO SCH (09:13)
[2020-12-18 17:41] VITALS: BP 114/79; PULSE 68; RESP 20; TEMP 98.3
== END 2020-12-18 18:15 | disposition home or self-care (01) | DRG 807 ==
LOC: 4FBP 06:09
PROVIDERS: ADMIT Obstetrics & Gynecology; ATTEND Obstetrics & Gynecology
PROC: 10E0XZZ Delivery of Products of Conception, External Approach (ICD-10-PCS; principal; 2020-12-17)
PROC: 0KQM0ZZ Repair Perineum Muscle, Open Approach (ICD-10-PCS; 2020-12-17)
PROC: 10907ZC Drainage of Amniotic Fluid, Therapeutic from Products of Conception, Via Natural or Artificial Opening (ICD-10-PCS; 2020-12-17)
PROC: 3E033VJ Introduction of Other Hormone into Peripheral Vein, Percutaneous Approach (ICD-10-PCS; 2020-12-17)
PROC: 3E0R3BZ Introduction of Anesthetic Agent into Spinal Canal, Percutaneous Approach (ICD-10-PCS; 2020-12-17)
DX: O99.62 Diseases of the digestive system complicating childbirth (principal); Z37.0 Single live birth; O99.344 Other mental disorders complicating childbirth; F31.9 Bipolar disorder, unspecified; F41.0 Panic disorder [episodic paroxysmal anxiety]; F90.9 Attention-deficit hyperactivity disorder, unspecified type; K58.9 Irritable bowel syndrome, unspecified; O70.1 Second degree perineal laceration during delivery; Z98.890 Other specified postprocedural states; Z87.891 Personal history of nicotine dependence; Z3A.39 39 weeks gestation of pregnancy; Z88.1 Allergy status to other antibiotic agents; Z88.8 Allergy status to other drugs, medicaments and biological substances; Z91.018 Allergy to other foods; Z91.048 Other nonmedicinal substance allergy status; Z82.49 Family history of ischemic heart disease and other diseases of the circulatory system; Z80.9 Family history of malignant neoplasm, unspecified; Z83.79 Family history of other diseases of the digestive system
CPT/HCPCS: 85025; 86850; 86900; 86901

== ENCOUNTER → 2021-11-04 | Outpatient (CLI) | payer OTHER ==
[2021-11-04 15:08] LABS: C Reactive Protein <0.30 mg/dL (0.00-0.80); Rheumatoid Factor, Qnt <10 IU/mL (0-15)
== END | disposition home or self-care (01) ==
LOC: LABWHC1 09:47
PROVIDERS: ATTEND Nurse Practitioner Family
DX: M25.50 Pain in unspecified joint (principal)
CPT/HCPCS: 36415; 83516; 86038; 86140; 86200; 86225; 86235; 86431

== ENCOUNTER 2022-08-01 22:36 | Emergency (ER) | payer OTHER ==
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
[2022-08-01 23:00] VITALS: TEMP 98.5
[2022-08-01 23:15] VITALS: BP 145/98; PULSE 65; RESP 16
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
--- NOTE | 2022-08-02 00:16 | XR ---
EXAMINATION TYPE: XR chest 1V portable DATE OF EXAM: 08/01/2022 COMPARISON: NONE HISTORY: Pain. Trauma. TECHNIQUE: Single view FINDINGS: Heart and mediastinum are normal. Lungs are clear. Diaphragm is normal. Bony thorax is inta ct. IMPRESSION: Normal chest
--- NOTE | 2022-08-02 00:17 | XR ---
EXAMINATION TYPE: XR shoulder complete RT DATE OF EXAM: 08/01/2022 COMPARISON: NONE HISTORY: Pain TECHNIQUE: 3 views FINDINGS: The glenohumeral joint is intact. I see no fracture nor dislocation. Joint spaces are maris l. IMPRESSION: Normal right shoulder.
== END 2022-08-02 00:51 | disposition home or self-care (01) ==
LOC: EC 22:36
DX: M25.511 Pain in right shoulder (principal); M54.2 Cervicalgia; F90.9 Attention-deficit hyperactivity disorder, unspecified type; F41.9 Anxiety disorder, unspecified; F31.9 Bipolar disorder, unspecified; Z88.1 Allergy status to other antibiotic agents; Z91.018 Allergy to other foods; Z88.8 Allergy status to other drugs, medicaments and biological substances; Z88.0 Allergy status to penicillin; V89.2XXA Person injured in unspecified motor-vehicle accident, traffic, initial encounter
CPT/HCPCS: 71045; 72125; 99284

== ENCOUNTER → 2022-08-12 | Outpatient (CLI) | payer OTHER ==
--- NOTE | 2022-08-13 09:01 | CT ---
EXAMINATION TYPE: CT lumbar spine wo con CT DLP: 410.2 mGycm, Automated exposure control for dose reduction was used. DATE OF EXAM: 08/12/2022 4:47 PM COMPARISON: None. CLINICAL INDICATION:Female, 27 years old with history of M54.50 LOW BACK PAIN, UNSPECIFIED. TECHNIQUE: Multiple axial images were obtained from the midportion of T11 through the sacroiliac evon nts. Soft tissue and bone windows in coronal and sagittal planes were obtained and reviewed. Contrast used: none. Oral contrast used: none. FINDINGS: Alignment: There are 4 lumbar type vertebral bodies with transitional vertebrae of L5 sacralization o f the bilateral transverse processes. Within normal alignment. Bone: No evidence of fracture is identified. Discs: T12-L1: No spinal canal or neural foraminal stenosis is identified. L1-L2: No spinal canal or neural foraminal stenosis is identified. L2-L3: No spinal canal or neural foraminal stenosis is identified. L3-L4: No spinal canal or neural foraminal stenosis is identified. L4-L5: No spinal canal or neural foraminal stenosis is identified. L5-S1: No spinal canal or neural foraminal stenosis is identified. IMPRESSION: 1. No evidence of fracture of the lumbar spine.
== END | disposition home or self-care (01) ==
LOC: RADCTMAIN 16:19
PROVIDERS: ATTEND Family Medicine
DX: M54.50 Low back pain, unspecified (principal)
CPT/HCPCS: 72131

== ENCOUNTER 2022-08-28 17:31 | Emergency (ER) | payer OTHER ==
[2022-08-28 18:06] VITALS: TEMP 98.1
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
[2022-08-28] MEDS ORDERED: HYDROmorphone 1 MG/ML 1 ML SYRINGE IM STA (19:25)
[2022-08-28] MEDS ORDERED: ORPHENADRINE 30 MG/ML 2 ML VIAL IM STA (19:25)
[2022-08-28] MEDS ORDERED: predniSONE 50 MG TAB PO STA (19:25)
[2022-08-28 19:59] VITALS: BP 128/76; PULSE 76; RESP 16
== END 2022-08-28 20:09 | disposition home or self-care (01) ==
LOC: EC 17:31
DX: G89.29 Other chronic pain (principal); M79.662 Pain in left lower leg; F90.9 Attention-deficit hyperactivity disorder, unspecified type; F41.9 Anxiety disorder, unspecified; F31.9 Bipolar disorder, unspecified; Z87.891 Personal history of nicotine dependence; Z88.0 Allergy status to penicillin; Z91.018 Allergy to other foods; Z88.1 Allergy status to other antibiotic agents; Z88.8 Allergy status to other drugs, medicaments and biological substances
CPT/HCPCS: 99283; 96372 ×2; J2360; J1170; J7512

== ENCOUNTER 2023-05-09 14:47 | Emergency (ER) | payer OTHER ==
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
[2023-05-09 16:09] LABS: Appearance,Urine Clear (Clear); Bacteria,Urine Rare /hpf; Bilirubin,Urine Negative (Negative); Blood,Urine Small (Negative); Color,Urine Light Yellow; Glucose,Urine (UA) Negative (Negative); Ketones,Urine Negative (Negative); Leukocyte Esterase,Urine Negative (Negative); Nitrite,Urine Negative (Negative); PH, Urine 6.5 (5.0-8.0); Protein,Urine Negative (Negative); RBC,Urine 3 /hpf (0-5); Specific Gravity,Urine 1.005 (1.001-1.035); Squamous Epithelial Cell,Urine 1 /hpf (0-4); Urobilinogen,Urine <2.0 mg/dL (<2.0); WBC,Urine <1 /hpf (0-5)
[2023-05-09 16:11] LABS: Basophils # (A) 0.1 k/uL (0-0.2); Basophils % (A) 1 %; Eosinophils # (A) 0.2 k/uL (0-0.7); Eosinophils % (A) 2 %; HCT 41.9 % (34.0-46.0); HGB 14.1 gm/dL (11.4-16.0); Lymphocytes # (A) 4.5 k/uL (1.0-4.8); Lymphocytes % (A) 38 %; MCH 29.6 pg (25.0-35.0); MCHC 33.7 g/dL (31.0-37.0); Mean Platelet Volume 8.6; Monocytes # (A) 0.5 k/uL (0-1.0); Monocytes % (A) 4 %; Neutrophils # (A) 6.5 k/uL (1.3-7.7); Neutrophils % (A) 54 %; Platelet Count 217 k/uL (150-450); RBC 4.77 m/uL (3.80-5.40); RDW 12.9 % (11.5-15.5); WBC 11.9 k/uL (3.8-10.6)
[2023-05-09 16:22] LABS: ALT 13 U/L (4-34); African American GFR (CKD) >90 (>60 ml/min/1.73 sqM); Albumin 4.6 g/dL (3.5-5.0); Anion Gap 9 mmol/L; Blood Urea Nitrogen 7 mg/dL (7-17); Carbon Dioxide 23 mmol/L (22-30); Chloride 108 mmol/L (98-107); Glucose 82 mg/dL (74-99); Lipase 38 U/L (23-300); Non-African American GFR(CKD) >90 (>60 ml/min/1.73 sqM); Sodium 140 mmol/L (137-145); Total Bilirubin 0.5 mg/dL (0.2-1.3); Total Protein 7.8 g/dL (6.3-8.2)
[2023-05-09 16:31] LABS: AST 23 U/L (14-36); Alkaline Phosphatase 63 U/L (38-126); Potassium 4.2 mmol/L (3.5-5.1)
--- NOTE | 2023-05-09 19:33 | CT ---
EXAMINATION TYPE: CT abdomen pelvis w con DATE OF EXAM: 05/09/2023 COMPARISON: NONE HISTORY: 28-year-old female Blood in urine at PCP. LLQ abdominal pain and left back pain with spasms TECHNIQUE: Contiguous axial scanning of the abdomen and pelvis following administration of 100 ml Iso cris 300 IV contrast. Delayed images through the kidneys and coronal/sagittal reconstructions perform ed. CT DLP: 782.1 mGycm Automated exposure control for dose reduction was used. FINDINGS: LUNG BASES: No significant abnormality is appreciated. LIVER/GB: No significant abnormality is appreciated. PANCREAS: No significant abnormality is seen. SPLEEN: No significant abnormality is seen. ADRENALS: No significant abnormality is seen. KIDNEYS: No significant abnormality is seen. No nephrolithiasis or hydronephrosis. BOWEL: No significant abnormality is seen. Mild stool burden. Normal appendix. No dilated small jonathan l, free fluid, or free air. LYMPH NODES: No greater than 1cm abdominal or pelvic lymph nodes are appreciated. PELVIS: Bladder distended. Uterus anteverted. Prominent left-sided periuterine varices and asymmetric ally larger left gonadal vein that shows appropriate enhancement. No abnormal fluid collection in the pelvis. OSSEOUS STRUCTURES: No significant abnormality is seen. Transitional lumbosacral segment denoted as a sacralized L5. OTHER: No significant additional abnormality is seen. IMPRESSION: 1. LEFT PARAUTERINE VARICES WITH ASYMMETRICALLY LARGER LEFT GONADAL VEIN. FINDINGS ARE NONSPECIFIC BU T CAN BE SEEN IN THE SETTING OF PELVIC CONGESTION SYNDROME. 2. OTHERWISE, NO ACUTE INFLAMMATORY PROCESS IDENTIFIED IN THE ABDOMEN OR PELVIS TO EXPLAIN THE PATIEN T'S SYMPTOMS. NO NEPHROLITHIASIS OR HYDRONEPHROSIS SEEN.
[2023-05-09 20:34] VITALS: BP 127/83; PULSE 55; RESP 16; TEMP 97.9
== END 2023-05-09 20:34 | disposition home or self-care (01) ==
LOC: EC 14:47
DX: N94.89 Other specified conditions associated with female genital organs and menstrual cycle (principal); Z87.891 Personal history of nicotine dependence; Z86.59 Personal history of other mental and behavioral disorders; Z88.0 Allergy status to penicillin; Z88.8 Allergy status to other drugs, medicaments and biological substances; Z91.018 Allergy to other foods
CPT/HCPCS: 36415; 80053; 83605; 83690; 85025; 81001; 81025; 74177; 99284; Q9967

== ENCOUNTER → 2023-06-17 | Outpatient (CLI) | payer OTHER | END | disposition home or self-care (01) | LOC: LABWHC1 09:16 | PROVIDERS: ATTEND Family Medicine | DX: Z53.9 Procedure and treatment not carried out, unspecified reason (principal) ==

== ENCOUNTER 2023-08-02 21:49 | Emergency (ER) | payer OTHER ==
[2023-08-02 22:38] LABS: Appearance,Urine Cloudy (Clear); Bilirubin,Urine Negative (Negative); Blood,Urine Small (Negative); Color,Urine Dark Orange; Glucose,Urine (UA) Negative (Negative); Ketones,Urine Negative (Negative); Leukocyte Esterase,Urine Moderate (Negative); Nitrite,Urine Positive (Negative); Protein,Urine 1+ (Negative); Urobilinogen,Urine <2.0 mg/dL (<2.0)
[2023-08-02 22:43] LABS: Bacteria,Urine Rare /hpf; Mucus,Urine Rare /hpf; RBC,Urine 82 /hpf (0-5); Squamous Epithelial Cell,Urine 19 /hpf (0-4); WBC,Urine 35 /hpf (0-5)
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
[2023-08-02] MEDS ORDERED: SULFAMETHOX-TMP 800-160MG 1 EACH TAB PO STA (23:57)
[2023-08-03 00:24] VITALS: BP 122/83; PULSE 65; RESP 16; TEMP 98.2
== END 2023-08-03 | disposition home or self-care (01) ==
LOC: EC 21:49
DX: N39.0 Urinary tract infection, site not specified (principal); Z86.59 Personal history of other mental and behavioral disorders; Z87.891 Personal history of nicotine dependence
CPT/HCPCS: 81001; 81025; 99283

== ENCOUNTER → 2023-09-14 | Outpatient (CLI) | payer OTHER ==
--- NOTE | 2023-09-16 11:28 | NM ---
EXAMINATION TYPE: NM thyroid image w uptake DATE OF EXAM: 09/15/2023 COMPARISON: NONE CLINICAL INDICATION: Female, 28 years old with history of E05.90 THYROTOXICOSIS; TECHNIQUE: Thyroid iodine uptake is calculated and images performed after the oral administration of 306 uCi 1-123 Capsule. FINDINGS: There is normal distribution of activity throughout the gland. The 4 hour iodine uptake is calculated at 31.1% (normal range 8-14%). The 24-hour iodine uptake is calculated at 57.3% (normal r david 15-35%). IMPRESSION: Increased radiotracer uptake compatible with hyperthyroid.
== END | disposition home or self-care (01) ==
LOC: RADNMMAIN 08-25 08:43
PROVIDERS: ATTEND Internal Medicine Endocrinology, Diabetes & Metabolism
DX: E05.90 Thyrotoxicosis, unspecified without thyrotoxic crisis or storm (principal)
CPT/HCPCS: 78014; A9516

== ENCOUNTER 2024-07-26 15:58 | Emergency (ER) | payer OTHER ==
[2024-07-26 16:15] VITALS: TEMP 98.3
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
[2024-07-26 17:16] LABS: Appearance,Urine Cloudy (Clear); Bacteria,Urine Rare /hpf; Bilirubin,Urine Negative (Negative); Blood,Urine Negative (Negative); Color,Urine Yellow; Glucose,Urine (UA) Negative (Negative); Ketones,Urine Negative (Negative); Leukocyte Esterase,Urine Moderate (Negative); Mucus,Urine Few /hpf; Nitrite,Urine Negative (Negative); Protein,Urine Trace (Negative); RBC,Urine 3 /hpf (0-5); Specific Gravity,Urine 1.023 (1.001-1.035); Squamous Epithelial Cell,Urine 12 /hpf (0-4); WBC,Urine 5 /hpf (0-5)
--- NOTE | 2024-07-26 18:52 | XR ---
EXAMINATION TYPE: XR abdomen 1V DATE OF EXAM: 07/26/2024 6:39 PM CLINICAL INDICATION: Female, 29 years old with history of generalized abdominal pain; [facility] COMPARISON: None. TECHNIQUE: One radiographic view of the abdomen was obtained. FINDINGS: The bowel gas pattern is nonspecific without dilated loops of small or large bowel. . Fecal material and gas are demonstrated throughout the colon and rectum. There is no evidence for organomegaly or pneumoperitoneum. The osseous structures are intact. No ab normal calcifications are present. IMPRESSION: Nonspecific bowel gas pattern without radiographic evidence for acute process. [facility], , 07/26/2024 6:50 PM
[2024-07-26 19:27] LABS: Basophils # (A) 0.1 k/uL (0-0.2); Basophils % (A) 1 %; Eosinophils # (A) 0.1 k/uL (0-0.7); Eosinophils % (A) 1 %; HCT 46.4 % (34.0-46.0); HGB 14.8 gm/dL (11.4-16.0); Lymphocytes # (A) 2.5 k/uL (1.0-4.8); Lymphocytes % (A) 32 %; MCH 28.5 pg (25.0-35.0); MCHC 31.9 g/dL (31.0-37.0); MCV 89.5 fL (80.0-100.0); Mean Platelet Volume 7.8; Monocytes # (A) 0.3 k/uL (0-1.0); Monocytes % (A) 4 %; Neutrophils # (A) 4.9 k/uL (1.3-7.7); Neutrophils % (A) 62 %; Platelet Count 254 k/uL (150-450); RBC 5.19 m/uL (3.80-5.40); RDW 12.3 % (11.5-15.5); WBC 7.9 k/uL (3.8-10.6)
[2024-07-26 19:36] LABS: ALT 19 U/L (4-34); AST 25 U/L (14-36); African American GFR (CKD) >90 (>60 ml/min/1.73 sqM); Albumin 5.2 g/dL (3.5-5.0); Alkaline Phosphatase 82 U/L (38-126); Anion Gap 9 mmol/L; Blood Urea Nitrogen 10 mg/dL (7-17); Calcium 9.3 mg/dL (8.4-10.2); Carbon Dioxide 24 mmol/L (22-30); Chloride 108 mmol/L (98-107); Glucose 79 mg/dL (74-99); Lipase 43 U/L (23-300); Non-African American GFR(CKD) >90 (>60 ml/min/1.73 sqM); Potassium 3.7 mmol/L (3.5-5.1); Sodium 141 mmol/L (137-145); Total Bilirubin 0.8 mg/dL (0.2-1.3); Total Protein 8.2 g/dL (6.3-8.2)
[2024-07-26 20:04] VITALS: BP 115/79; PULSE 62; RESP 20
== END 2024-07-26 20:04 | disposition home or self-care (01) ==
LOC: EC 15:58
CPT/HCPCS: 36415; 74018; 80053; 81001; 81025; 83690; 85025; 99284